=== PATIENT | female | born 1955 | race Caucasian/White ===

== ENCOUNTER 2016-07-07 07:48 | Inpatient (IN) | payer OTHER ==
[~2016-07-07 07:48] MED LIST: AMARYL4 M1 PO; CALCIUM PO; COUMADIN1 M1 PO; COUMADIN2 M1 PO; COUMADIN3 M1 PO; FEOSOL325 M1 PO; GLUCOPHAGE500 M3 PO; HYDROCODON-ACE1 EA16 PO; INVOKANA100 MG PO; KLONOPIN0.5 M1 PO; LISINOPRIL-HCT1 EAC3 PO; PROAIR HFA8.5 GM INH; PROZAC20 M3 PO; SIMVASTATIN10 M1 PO; TENORMIN100 M1 PO; TRAZODONE HCL50 M1 PO; TRIGLIDE PO; VITAMIN B-121000 MC1 PO
[2016-07-07 08:53] LABS: BASO % 0.2 % (0-2); EOS % 2.9 % (0-7); EOSINOPHIL ABSOLUTE COUNT 0.2 tho/cmm (0.0-0.7); HCT-HEMATOCRIT 30.1 % (34.0-49.0); HGB-HEMOGLOBIN 9.8 gm/dl (12.0-15.5); LYMPH % 22.9 % (20-45); LYMPH ABSOLUTE COUNT 1.4 tho/cmm (0.8-4.5); MCH (MEAN CORPUSCULAR HGB) 30.7 pg (28.0-32.0); MCHC MEAN CORPUSCULAR HGB CONC 32.6 % (32.0-36.0); MCV (MEAN CELL VOLUME) 94.4 fl (82.0-96.0); MEAN PLATELET VOLUME 10.9 cmc (9.4-12.4); MONO % 7.7 % (0-12); MONOCYTE ABSOLUTE COUNT 0.5 tho/cmm (0.0-1.2); NEUTROPHIL ABSOLUTE COUNT 4.1 tho/cmm (1.6-8.0); NEUTROPHIL-AUTOMATED 4.1 tho/cmm (1.6-8.0); NEUTROPHILS % 66.3 % (40-80); PLATELET COUNT 172 tho/cmm (150-450); RED BLOOD COUNT 3.19 mil/cmm (4.00-5.20); RED CELL DISTRIBUTION WIDTH 13.5 % (12.4-16.4); WHITE BLOOD COUNT 6.2 tho/cmm (4.0-10.0)
[2016-07-07 08:58] LABS: INR 1.2 INR (0.9-1.1); PROTHROMBIN TIME 14.3 SECONDS (9.0-13.6)
[2016-07-07 09:14] LABS: ALB/GLOB RATIO 0.8 (0.8-2.0); ALBUMIN 2.9 g/dl (3.5-5.0); ALKALINE PHOSPHATASE 44 U/L (33-138); ALT/SGPT 25 U/L (12-78); ANION GAP 14 mmol/L (0-20); AST/SGOT 32 U/L (10-40); BILIRUBIN,TOTAL 0.6 mg/dl (0-1.5); BLOOD UREA NITROGEN 19 mg/dl (6-24); CALCIUM 8.6 mg/dl (8.5-10.5); CARBON DIOXIDE-VENOUS 21 mmol/L (22-32); CHLORIDE 111 mmol/l (96-110); CREATININE 0.73 mg/dl (0.50-1.10); GLUCOSE 183 mg/dL (70-110); POTASSIUM 4.4 mmol/L (3.7-5.1); SODIUM 142 mmol/L (135-145); eGFR VALUE FOR BLACK >90 mL/Min
[2016-07-07] MEDS ORDERED: PLAVIX75 M1 PO (09:28)
[2016-07-07] MEDS ORDERED: ASPIRIN EC325 M1 PO (09:29)
[2016-07-07] MEDS ORDERED: RANITIDINE HCL150 M2 PO (09:29)
[2016-07-07] MEDS ORDERED: VITAMIN C500 M3 PO (09:31)
[2016-07-07 13:08] LABS: AMYLASE 31 U/L (20-90); LIPASE 247 U/L (73-393)
[2016-07-07 20:53] LABS: URINE BILIRUBIN NEGATIVE (NEG); URINE BLOOD LARGE (NEG); URINE GLUCOSE (UA) MODERATE (NEG); URINE KETONE NEGATIVE (NEG); URINE LEUKOCYTE ESTERASE POSITIVE (NEG); URINE NITRITE NEGATIVE (NEG); URINE PROTEIN SMALL (NEG)
[2016-07-07 20:54] LABS: URINE APPEARANCE CLEAR; URINE COLOR YELLOW
[2016-07-07 20:59] LABS: URINE EPITHELIAL CELLS 0-1 /[HPF] (0-10); URINE RBC 0-3 /[HPF] (0-5); URINE WBC 0-2 /[HPF] (0-5)
[2016-07-08 01:13] LABS: BASO % 0.5 % (0-2); EOSINOPHIL ABSOLUTE COUNT 0.2 tho/cmm (0.0-0.7); HGB-HEMOGLOBIN 7.6 gm/dl (12.0-15.5); IMMATURE GRANULOCYTES ABSOLUTE 0.01 tho/cmm (0-0.03); IMMATURE GRANULOCYTES PERCENT 0.2 % (0-0.3); LYMPH % 34.4 % (20-45); LYMPH ABSOLUTE COUNT 2.1 tho/cmm (0.8-4.5); MCH (MEAN CORPUSCULAR HGB) 30.5 pg (28.0-32.0); MCHC MEAN CORPUSCULAR HGB CONC 32.8 % (32.0-36.0); MCV (MEAN CELL VOLUME) 93.2 fl (82.0-96.0); MEAN PLATELET VOLUME 10.3 cmc (9.4-12.4); MONOCYTE ABSOLUTE COUNT 0.4 tho/cmm (0.0-1.2); NEUTROPHIL ABSOLUTE COUNT 3.3 tho/cmm (1.6-8.0); NEUTROPHIL-AUTOMATED 3.3 tho/cmm (1.6-8.0); NEUTROPHILS % 55.9 % (40-80); PLATELET COUNT 176 tho/cmm (150-450); RED BLOOD COUNT 2.49 mil/cmm (4.00-5.20); RED CELL DISTRIBUTION WIDTH 14.2 % (12.4-16.4)
[2016-07-08 01:14] LABS: HCT-HEMATOCRIT 23.2 % (34.0-49.0)
[2016-07-08 01:22] LABS: ANION GAP 15 mmol/L (0-20); BLOOD UREA NITROGEN 16 mg/dl (6-24); CALCIUM 8.2 mg/dl (8.5-10.5); CARBON DIOXIDE-VENOUS 19 mmol/L (22-32); CHLORIDE 113 mmol/l (96-110); CREATININE 0.71 mg/dl (0.50-1.10); GLUCOSE 159 mg/dL (70-110); SODIUM 143 mmol/L (135-145); eGFR VALUE FOR BLACK >90 mL/Min
[2016-07-09 00:12] LABS: HGB-HEMOGLOBIN 7.6 gm/dl (12.0-15.5)
[2016-07-09 04:57] LABS: PLATELET COUNT 125 tho/cmm (150-450)
[2016-07-09 05:23] LABS: ANION GAP 13 mmol/L (0-20); BLOOD UREA NITROGEN 12 mg/dl (6-24); CALCIUM 7.7 mg/dl (8.5-10.5); CARBON DIOXIDE-VENOUS 22 mmol/L (22-32); CHLORIDE 109 mmol/l (96-110); CREATININE 0.53 mg/dl (0.50-1.10); GLUCOSE 146 mg/dL (70-110); POTASSIUM 3.7 mmol/L (3.7-5.1); SODIUM 140 mmol/L (135-145); eGFR VALUE FOR BLACK >90 mL/Min
[2016-07-09 05:29] LABS: MAGNESIUM 1.5 mg/dl (1.8-2.6)
--- NOTE | 2016-07-09 09:06 | NUR ---
PT TX DOWN TO ENDOSCOPY VIA CART FOR EGD. MONITORS NOTIFIED
[2016-07-10 04:43] LABS: PLATELET COUNT 164 tho/cmm (150-450)
[2016-07-10 04:57] LABS: ANION GAP 14 mmol/L (0-20); BLOOD UREA NITROGEN 19 mg/dl (6-24); CALCIUM 8.6 mg/dl (8.5-10.5); CARBON DIOXIDE-VENOUS 21 mmol/L (22-32); CHLORIDE 108 mmol/l (96-110); GLUCOSE 169 mg/dL (70-110); MAGNESIUM 2.9 mg/dl (1.8-2.6); POTASSIUM 4.5 mmol/L (3.7-5.1); SODIUM 138 mmol/L (135-145); eGFR VALUE FOR BLACK 68 mL/Min
[2016-07-10 05:09] LABS: CREATININE 1.02 mg/dl (0.50-1.10)
[2016-07-11 06:15] LABS: ANION GAP 13 mmol/L (0-20); BLOOD UREA NITROGEN 24 mg/dl (6-24); CALCIUM 8.3 mg/dl (8.5-10.5); CARBON DIOXIDE-VENOUS 22 mmol/L (22-32); CHLORIDE 109 mmol/l (96-110); CREATININE 0.96 mg/dl (0.50-1.10); GLUCOSE 149 mg/dL (70-110); POTASSIUM 4.6 mmol/L (3.7-5.1); SODIUM 139 mmol/L (135-145); eGFR VALUE FOR BLACK 73 mL/Min
[2016-07-13 05:00] LABS: BASO % 0.3 % (0-2); EOS % 3.4 % (0-7); EOSINOPHIL ABSOLUTE COUNT 0.1 tho/cmm (0.0-0.7); HCT-HEMATOCRIT 25.3 % (34.0-49.0); HGB-HEMOGLOBIN 8.2 gm/dl (12.0-15.5); IMMATURE GRANULOCYTES ABSOLUTE 0.01 tho/cmm (0-0.03); IMMATURE GRANULOCYTES PERCENT 0.3 % (0-0.3); LYMPH % 31.3 % (20-45); LYMPH ABSOLUTE COUNT 1.1 tho/cmm (0.8-4.5); MCHC MEAN CORPUSCULAR HGB CONC 32.4 % (32.0-36.0); MCV (MEAN CELL VOLUME) 92.7 fl (82.0-96.0); MEAN PLATELET VOLUME 10.5 cmc (9.4-12.4); MONO % 8.5 % (0-12); MONOCYTE ABSOLUTE COUNT 0.3 tho/cmm (0.0-1.2); NEUTROPHILS % 56.2 % (40-80); PLATELET COUNT 145 tho/cmm (150-450); RED BLOOD COUNT 2.73 mil/cmm (4.00-5.20); RED CELL DISTRIBUTION WIDTH 16.4 % (12.4-16.4); WHITE BLOOD COUNT 3.6 tho/cmm (4.0-10.0)
[2016-07-13] MEDS ORDERED: AMIODARONE HCL200 M1 PO ×2 (13:43)
[2016-08-14] MEDS ORDERED: ZOFRAN4 M2 PO (14:56)
[2016-08-14] MEDS ORDERED: QUESTRAN LIGHT210 G1 PO (14:56)
== END 2016-07-13 15:13 | DRG 378 ==
LOC: EDMED 07:48 → EMR2 11:00 → PCUB 16:02
PROVIDERS: Emergency Medicine; Internal Medicine Cardiovascular Disease; Specialist; ADMIT Family Medicine
PROC: 0DJD8ZZ Inspection of Lower Intestinal Tract, Via Natural or Artificial Opening Endoscopic (ICD-10-PCS; principal; 2016-07-07)
PROC: 0DJ08ZZ Inspection of Upper Intestinal Tract, Via Natural or Artificial Opening Endoscopic (ICD-10-PCS; 2016-07-07)
DX: K92.2 Gastrointestinal hemorrhage, unspecified (principal); D62 Acute posthemorrhagic anemia; I07.1 Rheumatic tricuspid insufficiency; I10 Essential (primary) hypertension; E11.9 Type 2 diabetes mellitus without complications; I48.91 Unspecified atrial fibrillation; E66.9 Obesity, unspecified; I34.0 Nonrheumatic mitral (valve) insufficiency; Z79.82 Long term (current) use of aspirin; Z79.02 Long term (current) use of antithrombotics/antiplatelets; Z68.36 Body mass index [BMI] 36.0-36.9, adult
CPT/HCPCS: A9560; C1760; C1887; C9113; J0282; J1815; J2250; J2405; J3010; J3475; J3480; J7030; J7050; P9016; Q9967

== ENCOUNTER 2016-07-18 07:08 | Inpatient (IN) | payer OTHER ==
[~2016-07-18 07:08] MED LIST changes: +AMIODARONE HCL200 M1 PO; +ASPIRIN EC325 M1 PO; +PLAVIX75 M1 PO; +RANITIDINE HCL150 M2 PO; +VITAMIN C500 M3 PO
[2016-07-18 08:17] LABS: BASO % 0.6 % (0-2); EOS % 2.3 % (0-7); EOSINOPHIL ABSOLUTE COUNT 0.1 tho/cmm (0.0-0.7); HCT-HEMATOCRIT 28.7 % (34.0-49.0); HGB-HEMOGLOBIN 9.1 gm/dl (12.0-15.5); IMMATURE GRANULOCYTES ABSOLUTE 0.02 tho/cmm (0-0.03); IMMATURE GRANULOCYTES PERCENT 0.4 % (0-0.3); LYMPH % 21.4 % (20-45); LYMPH ABSOLUTE COUNT 1.1 tho/cmm (0.8-4.5); MCH (MEAN CORPUSCULAR HGB) 29.5 pg (28.0-32.0); MCHC MEAN CORPUSCULAR HGB CONC 31.7 % (32.0-36.0); MCV (MEAN CELL VOLUME) 93.2 fl (82.0-96.0); MEAN PLATELET VOLUME 10.1 cmc (9.4-12.4); MONO % 6.5 % (0-12); MONOCYTE ABSOLUTE COUNT 0.3 tho/cmm (0.0-1.2); NEUTROPHIL ABSOLUTE COUNT 3.6 tho/cmm (1.6-8.0); NEUTROPHIL-AUTOMATED 3.6 tho/cmm (1.6-8.0); NEUTROPHILS % 68.8 % (40-80); PLATELET COUNT 193 tho/cmm (150-450); RED BLOOD COUNT 3.08 mil/cmm (4.00-5.20); WHITE BLOOD COUNT 5.2 tho/cmm (4.0-10.0)
[2016-07-18 08:25] LABS: INR 1.2 INR (0.9-1.1); PROTHROMBIN TIME 13.6 SECONDS (9.0-13.6)
[2016-07-18 08:37] LABS: ANION GAP 15 mmol/L (0-20); BLOOD UREA NITROGEN 22 mg/dl (6-24); CALCIUM 9.1 mg/dl (8.5-10.5); CARBON DIOXIDE-VENOUS 21 mmol/L (22-32); CHLORIDE 107 mmol/l (96-110); CREATININE 1.19 mg/dl (0.50-1.10); GLUCOSE 167 mg/dL (70-110); POTASSIUM 4.2 mmol/L (3.7-5.1); SODIUM 139 mmol/L (135-145); eGFR VALUE FOR BLACK 57 mL/Min
[2016-07-18 09:22] LABS: ALB/GLOB RATIO 0.8 (0.8-2.0); ALBUMIN 3.1 g/dl (3.5-5.0); BILIRUBIN,DIRECT 0.2 mg/dl (0.0-0.3); BILIRUBIN,INDIRECT 0.4 mg/dL (0.0-1.0); BILIRUBIN,TOTAL 0.6 mg/dl (0-1.5)
[2016-07-19 05:09] LABS: BASO % 0.3 % (0-2); EOS % 3.2 % (0-7); EOSINOPHIL ABSOLUTE COUNT 0.1 tho/cmm (0.0-0.7); HCT-HEMATOCRIT 24.5 % (34.0-49.0); HGB-HEMOGLOBIN 7.7 gm/dl (12.0-15.5); LYMPH % 33.1 % (20-45); LYMPH ABSOLUTE COUNT 1.2 tho/cmm (0.8-4.5); MCH (MEAN CORPUSCULAR HGB) 29.4 pg (28.0-32.0); MCHC MEAN CORPUSCULAR HGB CONC 31.4 % (32.0-36.0); MCV (MEAN CELL VOLUME) 93.5 fl (82.0-96.0); MONO % 6.9 % (0-12); MONOCYTE ABSOLUTE COUNT 0.2 tho/cmm (0.0-1.2); NEUTROPHILS % 56.5 % (40-80); PLATELET COUNT 157 tho/cmm (150-450); RED BLOOD COUNT 2.62 mil/cmm (4.00-5.20); RED CELL DISTRIBUTION WIDTH 16.1 % (12.4-16.4); WHITE BLOOD COUNT 3.5 tho/cmm (4.0-10.0)
[2016-07-19 05:19] LABS: ANION GAP 10 mmol/L (0-20); BLOOD UREA NITROGEN 20 mg/dl (6-24); CALCIUM 8.1 mg/dl (8.5-10.5); CARBON DIOXIDE-VENOUS 25 mmol/L (22-32); CHLORIDE 109 mmol/l (96-110); CREATININE 0.75 mg/dl (0.50-1.10); POTASSIUM 3.7 mmol/L (3.7-5.1); SODIUM 140 mmol/L (135-145); eGFR VALUE FOR BLACK >90 mL/Min
[2016-07-19 05:38] LABS: GLUCOSE 75 mg/dL (70-110)
[2016-07-20 11:05] LABS: ANION GAP 12 mmol/L (0-20); BLOOD UREA NITROGEN 11 mg/dl (6-24); CALCIUM 8.7 mg/dl (8.5-10.5); CARBON DIOXIDE-VENOUS 26 mmol/L (22-32); CHLORIDE 107 mmol/l (96-110); CREATININE 0.85 mg/dl (0.50-1.10); POTASSIUM 4.2 mmol/L (3.7-5.1); SODIUM 141 mmol/L (135-145); eGFR VALUE FOR BLACK 85 mL/Min
[2016-07-20 11:06] LABS: GLUCOSE 201 mg/dL (70-110)
[2016-08-14] MEDS ORDERED: ZOFRAN4 M2 PO (14:56)
[2016-08-14] MEDS ORDERED: QUESTRAN LIGHT210 G1 PO (14:56)
== END 2016-07-21 12:10 | DRG 357 ==
LOC: EDMED 07:08 → EMR2 11:17 → PCUB 14:36
PROVIDERS: Emergency Medicine; ADMIT Family Medicine
PROC: 02HV33Z Insertion of Infusion Device into Superior Vena Cava, Percutaneous Approach (ICD-10-PCS; 2016-07-18)
PROC: B548ZZA Ultrasonography of Superior Vena Cava, Guidance (ICD-10-PCS; 2016-07-18)
PROC: 04L53DZ Occlusion of Superior Mesenteric Artery with Intraluminal Device, Percutaneous Approach (ICD-10-PCS; principal; 2016-07-20)
PROC: B4141ZZ Fluoroscopy of Superior Mesenteric Artery using Low Osmolar Contrast (ICD-10-PCS; 2016-07-20)
DX: K63.81 Dieulafoy lesion of intestine (principal); D62 Acute posthemorrhagic anemia; I10 Essential (primary) hypertension; E11.9 Type 2 diabetes mellitus without complications; I48.0 Paroxysmal atrial fibrillation; R00.1 Bradycardia, unspecified; E66.9 Obesity, unspecified; F32.9 Major depressive disorder, single episode, unspecified; K21.9 Gastro-esophageal reflux disease without esophagitis; G47.33 Obstructive sleep apnea (adult) (pediatric); Z83.3 Family history of diabetes mellitus; Z82.49 Family history of ischemic heart disease and other diseases of the circulatory system; Z68.38 Body mass index [BMI] 38.0-38.9, adult; Z79.82 Long term (current) use of aspirin; Z79.84 Long term (current) use of oral hypoglycemic drugs; Z79.899 Other long term (current) drug therapy
CPT/HCPCS: A9560; C1751; C1760; C1769; C1887; G8978-GP-CI; G8979-GP-CI; G8980-GP-CI; G8987-GO-CH; G8988-GO-CH; G8989-GO-CH; J1815; J2250; J3010; J7030; J7040; Q9967

== ENCOUNTER 2016-07-26 07:33 | Inpatient (IN) | payer OTHER ==
[2016-07-26 08:57] LABS: BASO % 0.3 % (0-2); EOS % 2.4 % (0-7); EOSINOPHIL ABSOLUTE COUNT 0.1 tho/cmm (0.0-0.7); HGB-HEMOGLOBIN 8.3 gm/dl (12.0-15.5); IMMATURE GRANULOCYTES ABSOLUTE 0.02 tho/cmm (0-0.03); IMMATURE GRANULOCYTES PERCENT 0.5 % (0-0.3); LYMPH % 25.7 % (20-45); MCHC MEAN CORPUSCULAR HGB CONC 31.9 % (32.0-36.0); MCV (MEAN CELL VOLUME) 93.9 fl (82.0-96.0); MEAN PLATELET VOLUME 9.4 cmc (9.4-12.4); MONO % 6.6 % (0-12); MONOCYTE ABSOLUTE COUNT 0.3 tho/cmm (0.0-1.2); NEUTROPHIL ABSOLUTE COUNT 2.4 tho/cmm (1.6-8.0); NEUTROPHIL-AUTOMATED 2.4 tho/cmm (1.6-8.0); NEUTROPHILS % 64.5 % (40-80); PLATELET COUNT 141 tho/cmm (150-450); RED BLOOD COUNT 2.77 mil/cmm (4.00-5.20); RED CELL DISTRIBUTION WIDTH 16.7 % (12.4-16.4); WHITE BLOOD COUNT 3.8 tho/cmm (4.0-10.0)
[2016-07-26 09:15] LABS: ALB/GLOB RATIO 0.8 (0.8-2.0); ALBUMIN 2.9 g/dl (3.5-5.0); ALKALINE PHOSPHATASE 45 U/L (33-138); ALT/SGPT 24 U/L (12-78); ANION GAP 13 mmol/L (0-20); AST/SGOT 34 U/L (10-40); BILIRUBIN,TOTAL 0.8 mg/dl (0-1.5); BLOOD UREA NITROGEN 20 mg/dl (6-24); CALCIUM 8.6 mg/dl (8.5-10.5); CARBON DIOXIDE-VENOUS 23 mmol/L (22-32); CHLORIDE 109 mmol/l (96-110); CREATININE 0.89 mg/dl (0.50-1.10); GLUCOSE 127 mg/dL (70-110); LIPASE 153 U/L (73-393); POTASSIUM 3.8 mmol/L (3.7-5.1); SODIUM 141 mmol/L (135-145); eGFR VALUE FOR BLACK 81 mL/Min
[2016-07-27 04:02] LABS: BASO % 0.3 % (0-2); EOS % 3.1 % (0-7); EOSINOPHIL ABSOLUTE COUNT 0.1 tho/cmm (0.0-0.7); HGB-HEMOGLOBIN 7.5 gm/dl (12.0-15.5); IMMATURE GRANULOCYTES ABSOLUTE 0.01 tho/cmm (0-0.03); IMMATURE GRANULOCYTES PERCENT 0.3 % (0-0.3); LYMPH % 34.2 % (20-45); LYMPH ABSOLUTE COUNT 1.2 tho/cmm (0.8-4.5); MCH (MEAN CORPUSCULAR HGB) 29.9 pg (28.0-32.0); MCHC MEAN CORPUSCULAR HGB CONC 31.9 % (32.0-36.0); MCV (MEAN CELL VOLUME) 93.6 fl (82.0-96.0); MEAN PLATELET VOLUME 9.5 cmc (9.4-12.4); MONO % 6.9 % (0-12); MONOCYTE ABSOLUTE COUNT 0.3 tho/cmm (0.0-1.2); NEUTROPHILS % 55.2 % (40-80); PLATELET COUNT 145 tho/cmm (150-450); RED BLOOD COUNT 2.51 mil/cmm (4.00-5.20); RED CELL DISTRIBUTION WIDTH 16.8 % (12.4-16.4); WHITE BLOOD COUNT 3.6 tho/cmm (4.0-10.0)
[2016-07-27 04:12] LABS: ANION GAP 14 mmol/L (0-20); BLOOD UREA NITROGEN 11 mg/dl (6-24); CARBON DIOXIDE-VENOUS 23 mmol/L (22-32); CHLORIDE 109 mmol/l (96-110); CREATININE 0.66 mg/dl (0.50-1.10); GLUCOSE 76 mg/dL (70-110); POTASSIUM 3.7 mmol/L (3.7-5.1); SODIUM 142 mmol/L (135-145); eGFR VALUE FOR BLACK >90 mL/Min
[2016-07-27 04:21] LABS: HCT-HEMATOCRIT 23.5 % (34.0-49.0)
[2016-07-28 05:06] LABS: ANION GAP 15 mmol/L (0-20); BLOOD UREA NITROGEN 13 mg/dl (6-24); CALCIUM 8.3 mg/dl (8.5-10.5); CARBON DIOXIDE-VENOUS 22 mmol/L (22-32); CHLORIDE 107 mmol/l (96-110); CREATININE 0.66 mg/dl (0.50-1.10); POTASSIUM 4.1 mmol/L (3.7-5.1); SODIUM 140 mmol/L (135-145); eGFR VALUE FOR BLACK >90 mL/Min
[2016-07-28 05:10] LABS: HCT-HEMATOCRIT 26.4 % (34.0-49.0); HGB-HEMOGLOBIN 8.4 gm/dl (12.0-15.5); IMMATURE GRANULOCYTES ABSOLUTE 0.01 tho/cmm (0-0.03); IMMATURE GRANULOCYTES PERCENT 0.1 % (0-0.3); LYMPH % 3.9 % (20-45); LYMPH ABSOLUTE COUNT 0.4 tho/cmm (0.8-4.5); MCH (MEAN CORPUSCULAR HGB) 30.5 pg (28.0-32.0); MCHC MEAN CORPUSCULAR HGB CONC 31.8 % (32.0-36.0); MEAN PLATELET VOLUME 9.6 cmc (9.4-12.4); MONO % 4.7 % (0-12); MONOCYTE ABSOLUTE COUNT 0.5 tho/cmm (0.0-1.2); NEUTROPHILS % 91.3 % (40-80); PLATELET COUNT 157 tho/cmm (150-450); RED BLOOD COUNT 2.75 mil/cmm (4.00-5.20)
[2016-07-28 05:19] LABS: WHITE BLOOD COUNT 9.8 tho/cmm (4.0-10.0)
[2016-07-28 05:28] LABS: GLUCOSE 164 mg/dL (70-110)
--- NOTE | 2016-07-28 17:52 | NUR ---
PATIENT UP WALKING IN HALLS X3 TODAY AND IN CHAIR TWICE. PATIENT DOING INCENTIVE SPIROMETER AND PATIENT GOING TO 1000 ON DEVICE. ALSO ENCOURAGE COUGHING AND DEEP BREATHING OFTEN. PATIENT USES PILLOW TO SPLINT. VERY WEAK COUGH. LUNG SOUNDS CLEAR WITH DIM BASES. O2 SATS 88-94% ON ROOM AIR SO APPLIED 1L OXYGEN. ONLY GAVE ONE DOSE OF DILAUDID ON TOP OF FAN ENGINE ENGINEER. PATIENT SEEMED TO GET VERY LETHARGIC/SLEEPY/SHALLOW RESPIRATIONS WITH THAT DOSE SO NOT REPEATED. PATIENT EASY TO AROUSE AND WHEN AWAKE, OXYGEN LEVELS ARE WNL ON ROOM AIR. WILL CONTINUE TO MONITOR.
[2016-07-29 05:09] LABS: HCT-HEMATOCRIT 24.5 % (34.0-49.0); HGB-HEMOGLOBIN 7.7 gm/dl (12.0-15.5); IMMATURE GRANULOCYTES ABSOLUTE 0.01 tho/cmm (0-0.03); IMMATURE GRANULOCYTES PERCENT 0.1 % (0-0.3); LYMPH % 12.9 % (20-45); LYMPH ABSOLUTE COUNT 0.9 tho/cmm (0.8-4.5); MCH (MEAN CORPUSCULAR HGB) 30.2 pg (28.0-32.0); MCHC MEAN CORPUSCULAR HGB CONC 31.4 % (32.0-36.0); MCV (MEAN CELL VOLUME) 96.1 fl (82.0-96.0); MEAN PLATELET VOLUME 9.3 cmc (9.4-12.4); MONO % 6.1 % (0-12); MONOCYTE ABSOLUTE COUNT 0.4 tho/cmm (0.0-1.2); NEUTROPHIL ABSOLUTE COUNT 5.8 tho/cmm (1.6-8.0); NEUTROPHIL-AUTOMATED 5.8 tho/cmm (1.6-8.0); NEUTROPHILS % 80.9 % (40-80); PLATELET COUNT 153 tho/cmm (150-450); RED BLOOD COUNT 2.55 mil/cmm (4.00-5.20); WHITE BLOOD COUNT 7.2 tho/cmm (4.0-10.0)
[2016-07-29 05:20] LABS: ANION GAP 11 mmol/L (0-20); CALCIUM 8.3 mg/dl (8.5-10.5); CARBON DIOXIDE-VENOUS 27 mmol/L (22-32); CHLORIDE 107 mmol/l (96-110); CREATININE 0.66 mg/dl (0.50-1.10); GLUCOSE 124 mg/dL (70-110); POTASSIUM 4.2 mmol/L (3.7-5.1); SODIUM 141 mmol/L (135-145); eGFR VALUE FOR BLACK >90 mL/Min
[2016-07-29 05:21] LABS: BLOOD UREA NITROGEN 25 mg/dl (6-24)
[2016-07-29 09:23] LABS: URINE APPEARANCE CLOUDY; URINE BILIRUBIN NEGATIVE (NEG); URINE BLOOD MODERATE (NEG); URINE COLOR YELLOW; URINE GLUCOSE (UA) LARGE (NEG); URINE KETONE SMALL (NEG); URINE LEUKOCYTE ESTERASE POSITIVE (NEG); URINE NITRITE NEGATIVE (NEG); URINE PROTEIN MODERATE (NEG)
[2016-07-29 09:24] LABS: URINE OTHER VOLUME 5 ML
[2016-07-29 09:32] LABS: URINE AMORPHOUS 4+; URINE RBC 0 /[HPF] (0-5); URINE WBC 0 /[HPF] (0-5)
--- NOTE | 2016-07-29 20:18 | NUR ---
VN ROUNDING/LEADER ROUNDING-PATIENT JUST GOT TO OUR FLOOR FROM PCU BUT STATES EVERYTHING IS OK AND THE PAIN IS STAYING PRETTY CONTROLLED WITH THE ORAL PAIN PILLS AND CALL LIGHTS ANSWERED TIMELY. DENIES NEED FOR ANYTHING ELSE. I PAGED THE NURSE SHE WAS NOT RUNNING IV FLUIDS AND SHOULD BE FROM WHAT I SHOW ON ORDERS. WENT AND INVESTIGATED CHART AND SHE IS TO BE RUNNING LR AT 80CC/HR BUT PCU REPORTED PATIENT WAS SALINE LOCKED. ADVISED NURSE TO START FLUIDS
[2016-07-30 06:30] LABS: EOS % 1.3 % (0-7); EOSINOPHIL ABSOLUTE COUNT 0.1 tho/cmm (0.0-0.7); HGB-HEMOGLOBIN 7.3 gm/dl (12.0-15.5); IMMATURE GRANULOCYTES ABSOLUTE 0.01 tho/cmm (0-0.03); IMMATURE GRANULOCYTES PERCENT 0.2 % (0-0.3); LYMPH % 19.7 % (20-45); LYMPH ABSOLUTE COUNT 0.9 tho/cmm (0.8-4.5); MCHC MEAN CORPUSCULAR HGB CONC 31.2 % (32.0-36.0); MCV (MEAN CELL VOLUME) 96.3 fl (82.0-96.0); MEAN PLATELET VOLUME 9.4 cmc (9.4-12.4); MONO % 5.6 % (0-12); MONOCYTE ABSOLUTE COUNT 0.3 tho/cmm (0.0-1.2); NEUTROPHIL ABSOLUTE COUNT 3.4 tho/cmm (1.6-8.0); NEUTROPHIL-AUTOMATED 3.4 tho/cmm (1.6-8.0); NEUTROPHILS % 73.2 % (40-80); PLATELET COUNT 129 tho/cmm (150-450); RED BLOOD COUNT 2.43 mil/cmm (4.00-5.20); RED CELL DISTRIBUTION WIDTH 16.1 % (12.4-16.4); WHITE BLOOD COUNT 4.7 tho/cmm (4.0-10.0)
[2016-07-30 06:31] LABS: HCT-HEMATOCRIT 23.4 % (34.0-49.0)
[2016-07-30 06:44] LABS: ANION GAP 11 mmol/L (0-20); BLOOD UREA NITROGEN 22 mg/dl (6-24); CALCIUM 7.9 mg/dl (8.5-10.5); CARBON DIOXIDE-VENOUS 27 mmol/L (22-32); CHLORIDE 104 mmol/l (96-110); CREATININE 0.65 mg/dl (0.50-1.10); GLUCOSE 121 mg/dL (70-110); POTASSIUM 3.8 mmol/L (3.7-5.1); SODIUM 138 mmol/L (135-145); eGFR VALUE FOR BLACK >90 mL/Min
--- NOTE | 2016-07-30 17:19 | NUR ---
VIRTUAL CARE NOTE: VISITED W/ PT AT THIS TIME. SHE IS RESTING IN BED, ALERT. STATES SHE IS NOT FEELING WELL TODAY, BUT IS WAITING ON HER BLOOD TRANSFUSION. HAS NO FURTHER QUESTIONS OR NEEDS AT THIS TIME. WILL CONTINUE TO MONITOR. FAMILY AT BEDSIDE. ELECTRONIC CHART REVIEWED.
[2016-07-31 07:03] LABS: BASO % 0.2 % (0-2); EOS % 3.4 % (0-7); EOSINOPHIL ABSOLUTE COUNT 0.2 tho/cmm (0.0-0.7); IMMATURE GRANULOCYTES ABSOLUTE 0.01 tho/cmm (0-0.03); IMMATURE GRANULOCYTES PERCENT 0.2 % (0-0.3); LYMPH % 21.2 % (20-45); LYMPH ABSOLUTE COUNT 1.1 tho/cmm (0.8-4.5); MCHC MEAN CORPUSCULAR HGB CONC 31.7 % (32.0-36.0); MCV (MEAN CELL VOLUME) 93.2 fl (82.0-96.0); MEAN PLATELET VOLUME 9.4 cmc (9.4-12.4); MONO % 8.4 % (0-12); MONOCYTE ABSOLUTE COUNT 0.5 tho/cmm (0.0-1.2); NEUTROPHIL ABSOLUTE COUNT 3.6 tho/cmm (1.6-8.0); NEUTROPHIL-AUTOMATED 3.6 tho/cmm (1.6-8.0); NEUTROPHILS % 66.6 % (40-80); PLATELET COUNT 158 tho/cmm (150-450); RED BLOOD COUNT 3.11 mil/cmm (4.00-5.20); RED CELL DISTRIBUTION WIDTH 16.6 % (12.4-16.4); WHITE BLOOD COUNT 5.4 tho/cmm (4.0-10.0)
[2016-07-31 07:07] LABS: HGB-HEMOGLOBIN 9.2 gm/dl (12.0-15.5); MCH (MEAN CORPUSCULAR HGB) 29.5 pg (28.0-32.0)
[2016-07-31 07:20] LABS: ANION GAP 13 mmol/L (0-20); BLOOD UREA NITROGEN 17 mg/dl (6-24); CALCIUM 8.1 mg/dl (8.5-10.5); CARBON DIOXIDE-VENOUS 25 mmol/L (22-32); CHLORIDE 103 mmol/l (96-110); CREATININE 0.68 mg/dl (0.50-1.10); GLUCOSE 87 mg/dL (70-110); PHOSPHOROUS 2.2 mg/dl (2.5-4.9); POTASSIUM 3.7 mmol/L (3.7-5.1); SODIUM 137 mmol/L (135-145); eGFR VALUE FOR BLACK >90 mL/Min
[2016-08-01] MEDS ORDERED: NORCO 5-325 TA1 EACH PO (11:25)
[2016-08-02] MEDS ORDERED: [UNRECOGNIZED DRUG - REMARK] (10:28)
[2016-08-14] MEDS ORDERED: ZOFRAN4 M2 PO (14:56)
[2016-08-14] MEDS ORDERED: QUESTRAN LIGHT210 G1 PO (14:56)
== END 2016-08-02 11:45 | DRG 330 ==
LOC: EDMED 07:33 → EMR2 12:26 → PCUB 21:30 → ORW 07-27 12:22 → PACU 07-27 13:44 → PCUB 07-27 15:47 → 5WD 07-29 19:00
PROVIDERS: Emergency Medicine; Internal Medicine; Registered Nurse; Surgery; ADMIT Family Medicine
PROC: 0DBB0ZZ Excision of Ileum, Open Approach (ICD-10-PCS; principal; 2016-07-26)
PROC: 02HV33Z Insertion of Infusion Device into Superior Vena Cava, Percutaneous Approach (ICD-10-PCS; 2016-07-26)
PROC: B548ZZA Ultrasonography of Superior Vena Cava, Guidance (ICD-10-PCS; 2016-07-26)
PROC: 30233N1 Transfusion of Nonautologous Red Blood Cells into Peripheral Vein, Percutaneous Approach (ICD-10-PCS; 2016-07-30)
DX: K92.2 Gastrointestinal hemorrhage, unspecified (principal); D62 Acute posthemorrhagic anemia; I48.0 Paroxysmal atrial fibrillation; K92.1 Melena; E11.9 Type 2 diabetes mellitus without complications; G25.81 Restless legs syndrome; Z98.890 Other specified postprocedural states; R11.0 Nausea; Z79.82 Long term (current) use of aspirin; Z79.84 Long term (current) use of oral hypoglycemic drugs; Z79.899 Other long term (current) drug therapy
CPT/HCPCS: C1751; J0295; J1170; J1815; J2405; J7030; J7050; P9016; Q9967